=== PATIENT | female | born 1930 | race African-American/Black ===

== ENCOUNTER 2018-07-01 09:37 | Emergency (ER) | payer MEDICARE ==
[~2018-07-01] VITALS: Ht 162.6 cm; Wt 63.5 kg
[2018-07-01 09:51] VITALS: BP 132/66
--- NOTE | 2018-07-01 10:29 | PHYS DOC ---
Past Medical History Past Medical History: High Cholesterol, Hypertension, Stroke, TIA Past Surgical History: Other Additional Past Surgical Histo: ABD SURGERY Alcohol Use: Heavy Drug Use: None Adult General Chief Complaint Chief Complaint: KNEE INJURY HPI HPI Patient is a 88 year old female presented to ER today for evaluation of right knee pain and swelling for the last few today. Patient complaint of pain when she walked. Patient denies any fever, no nausea vomiting. Patient denies any injury. Patient has history of right patella fracture in the past. Patient denies any chest pain, no trouble breathing. Review of Systems Review of Systems Constitutional: Denies fever or chills [] Eyes: Denies change in visual acuity, redness, or eye pain [] HENT: Denies nasal congestion or sore throat [] Respiratory: Denies cough or shortness of breath [] Cardiovascular: No additional information not addressed in HPI [] GI: Denies abdominal pain, nausea, vomiting, bloody stools or diarrhea [] : Denies dysuria or hematuria [] Musculoskeletal: Positive for her right knee pain Integument: Denies rash or skin lesions [] Neurologic: Denies headache, focal weakness or sensory changes [] Endocrine: Denies polyuria or polydipsia [] All other systems were reviewed and found to be within normal limits, except as documented in this note. Current Medications Current Medications Current Medications Medications (Trade) Dose Ordered Sig/Mariano Start Time Stop Time Status Last Admin Dose Admin Acetaminophen/ Hydrocodone Bitart (Lortab 5/325) 1 tab 1X ONCE 07/01/18 10:30 07/01/18 10:39 DC 07/01/18 10:39 1 TAB Allergies Allergies Allergies Coded Allergies Type Severity Reaction Last Updated Verified No Known Drug Allergies 07/01/18 No Physical Exam Physical Exam Constitutional: Well developed, well nourished, no acute distress, non-toxic appearance. [] HENT: Normocephalic, atraumatic, Eyes: PERRLA, EOMI, conjunctiva normal, no discharge. [] Neck: Normal range of motion, no tenderness, supple, no stridor. [] Cardiovascular:Heart rate regular rhythm, no murmur [] Lungs & Thorax: Bilateral breath sounds clear to auscultation [] Abdomen: Bowel sounds normal, soft, no tenderness, no masses, no pulsatile masses. [] Skin: Warm, dry, no erythema, no rash. [] Back: No tenderness, no CVA tenderness. [] Extremities: right knee is tender at the bursa area above the patella, there is no rash or the skin is hot to touch. RIGHT KNEE JOINT WITH FULL RANGE OF MOTION. GOOD DISTAL PULSE. Neurologic: Alert and oriented X 3, normal motor function, normal sensory function, no focal deficits noted. [] Psychologic: Affect normal, judgement normal, mood normal. [] Current Patient Data Vital Signs Vital Signs Date Time Temp Pulse Resp B/P (MAP) Pulse Ox O2 Delivery O2 Flow Rate FiO2 07/01/18 09:51 98.2 102 17 132/66 (88) 96 Room Air 98.2 EKG EKG [] Radiology/Procedures Radiology/Procedures [][facility] [address] [place] [address] IMAGING REPORT Signed PATIENT: MARI ROWLAND ACCOUNT: [id number] : 1930 LOCATION: ER AGE: 88 SEX: F EXAM STATUS: DEP ER ORD. PHYSICIAN: MARLYS ANTON DO REASON: right knee swelling PROCEDURE: KNEE RIGHT 3V EXAM: Right knee, 3 views. HISTORY: Pain and swelling. COMPARISON: None. FINDINGS: 3 views of the right knee are obtained. There is lateral compartment predominant joint space narrowing with subchondral sclerosis. There is severe tricompartmental spurring. There is chondrocalcinosis. There is a large joint effusion. There are vascular calcifications. There are small joint loose bodies. There is suspected mild genu valgus. IMPRESSION: 1. Severe lateral compartment predominant osteoarthritis of the right knee. 2. Large joint effusion and suspected joint loose bodies. 3. Suspected mild genu valgus. Electronically signed by: Eloisa Waters MD (07/01/2018 10:30 AM) [facility] DICTATED and SIGNED BY: ELOISA WATERS MD DATE: 07/01/18 1029 Impressions: OSTEOARTHRITIS OF RIGHT KNEE WITH JOINT EFFUSION Course & Med Decision Making Course & Med Decision Making Pertinent Labs and Imaging studies reviewed. (See chart for details) Discussed with Dr. Mcmanus, ORTHOPEDIC SENIOR TECHNICAL WRITER, RECOMMENDED MEDROL DOPAK, PAIN MEDICATION, WILL FOLLOW UP WITH HER IN HIS CLINIC ON 07/05/18 Sussy Disclaimer Sussy Disclaimer This electronic medical record was generated, in whole or in part, using a voice recognition dictation system. Departure Departure Impression: Primary Impression: Osteoarthritis of right knee Disposition: HOME, SELF-CARE Condition: STABLE Referrals: KIKA MCMANUS MD PLEASE CALL THIS ORTHOPEDIC SURGEON TODAY TO BE SEEN ON THURSDAY Patient Instructions: Knee Pain, Osteoarthritis Scripts Hydrocodone/Apap 5-325 (NORCO 5-325 TABLET) 1 Each Tablet 1 TAB PO PRN Q6HRS PRN for PAIN for 5 Days, #20 TAB 0 Refills Prov: MARLYS ANTON DO 07/01/18 Methylprednisolone (MEDROL) 4 Mg Tab.ds.pk 1 PKG PO UD, #1 PKG Prov: MARLYS ANTON DO 07/01/18 MARLYS ANTON DO Jul 01, 2018 10:29
[2018-07-01] MEDS ORDERED: HYDROcodone/APAP 5/325MG 1 TAB TABLET PO ONE (10:30)
--- NOTE | 2018-07-01 10:34 | RAD ---
EXAM: Right knee, 3 views. HISTORY: Pain and swelling. COMPARISON: None. FINDINGS: 3 views of the right knee are obtained. There is lateral compartment predominant joint space narrowing with subchondral sclerosis. There is severe tricompartmental spurring. There is chondrocalcinosis. There is a large joint effusion. There are vascular calcifications. There are small joint loose bodies. There is suspected mild genu valgus. IMPRESSION: 1. Severe lateral compartment predominant osteoarthritis of the right knee. 2. Large joint effusion and suspected joint loose bodies. 3. Suspected mild genu valgus. Electronically signed by: Eloisa Conde MD (07/01/2018 10:30 AM) [facility]
[2018-07-01] MEDS ORDERED: HYDR-971 PO (11:10)
[2018-07-01] MEDS ORDERED: METH4TAB2 PO (11:10)
[2018-07-02] MEDS ORDERED: AMLO10TA6 PO (20:08)
[2018-07-02] MEDS ORDERED: METF500T16 PO (20:09)
[2018-07-02] MEDS ORDERED: OMEP20CA9 PO (20:09)
[2018-07-02] MEDS ORDERED: LOSA50TA7 PO (20:10)
[2018-07-02] MEDS ORDERED: CLOP75TA PO (20:10)
[2018-07-02] MEDS ORDERED: PRAV20TA2 PO (20:11)
[2018-07-02] MEDS ORDERED: METO25TA4 PO (20:11)
[2018-07-02] MEDS ORDERED: excedrin pm (20:16)
== END 2018-07-01 11:26 | disposition home or self-care (01) ==
LOC: ER 09:37
DX: M17.11 Unilateral primary osteoarthritis, right knee (principal); E78.00 Pure hypercholesterolemia, unspecified; I10 Essential (primary) hypertension; F10.20 Alcohol dependence, uncomplicated; Y90.9 Presence of alcohol in blood, level not specified; Z86.73 Personal history of transient ischemic attack (TIA), and cerebral infarction without residual deficits
CPT/HCPCS: 73562; 99284

== ENCOUNTER 2018-07-02 17:56 | Inpatient (IN) | payer MEDICARE ==
[~2018-07-02] VITALS: Ht 162.6 cm; Wt 68.2 kg
[~2018-07-02 17:56] MED LIST: HYDR-971 PO; METH4TAB2 PO
[2018-07-02 19:00] VITALS: BP 124/70
[2018-07-02] MEDS ORDERED: TEMAZEPAM 15 MG CAPSULE PO PRN (19:45)
[2018-07-02] MEDS ORDERED: HYDROcodone/APAP 5/325MG 1 TAB TABLET PO PRN (19:45)
[2018-07-02] MEDS ORDERED: IBUPROFEN 200 MG TABLET. PO PRN (19:45)
[2018-07-02] MEDS: HYDROcodone/APAP 7.5/325MG 1 TAB TABLET PO PRN (19:53)
[2018-07-02] MEDS ORDERED: AMLO10TA6 PO (20:08)
[2018-07-02] MEDS ORDERED: OMEP20CA9 PO (20:09)
[2018-07-02] MEDS ORDERED: METF500T16 PO (20:09)
[2018-07-02] MEDS ORDERED: LOSA50TA7 PO (20:10)
[2018-07-02] MEDS ORDERED: CLOP75TA PO (20:10)
[2018-07-02] MEDS ORDERED: PRAV20TA2 PO (20:11)
[2018-07-02] MEDS ORDERED: METO25TA4 PO (20:11)
[2018-07-02] MEDS ORDERED: excedrin pm (20:16)
[2018-07-02] MEDS ORDERED: VANCOMYCIN 1.5 GM in IV NORMAL SALINE 500ML BAG 500 ML IV ONE (20:30)
[2018-07-02] MEDS: cefTRIAXone IV Push 1 GM VIAL. IVP SCH (20:58)
[2018-07-02] MEDS ORDERED: VANCOMYCIN 1GM IVPB FOR OMNI 250 ML IV SCH (21:00)
[2018-07-02 21:41] LABS: BF SOURCE SYNOVIAL
[2018-07-02 21:42] LABS: BF CLARITY TURBID; BF COLOR YELLOW; BF MON % 30 %; BF PMN % 70 %; BF RBC COUNT 12000 /cmm; BF WBC COUNT 129500 /cmm
[2018-07-02 23:00] VITALS: BP 106/60
[2018-07-03 01:03] LABS: BASO % 0 % (0-3); EOS % 0 % (0-3); HEMATOCRIT 29.9 % (36.0-47.0); HEMOGLOBIN 10.1 g/dL (12.0-15.5); LYMPH # 1.1 x10^3/uL (1.0-4.8); LYMPH % 8 % (24-48); MEAN CORPUSCULAR HEMOGLOBIN 30 pg (25-35); MEAN CORPUSCULAR HGB CONC 34 g/dL (31-37); MEAN CORPUSCULAR VOLUME 90 fL (79-100); MONO # 1.4 x10^3/uL (0.0-1.1); MONO % 11 % (0-9); NEUT # 10.7 x10^3uL (1.8-7.7); NEUT % 81 % (31-73); PLATELET COUNT 258 x10^3/uL (140-400); RED BLOOD COUNT 3.34 x10^6/uL (3.50-5.40); RED CELL DISTRIBUTION WIDTH 14.2 % (11.5-14.5); WHITE BLOOD COUNT 13.2 x10^3/uL (4.0-11.0)
[2018-07-03 01:21] LABS: ALBUMIN 2.9 g/dL (3.4-5.0); ALBUMIN/GLOBULIN RATIO 0.9 (1.0-1.7); CALCIUM 8.8 mg/dL (8.5-10.1); CREATININE 1.6 mg/dL (0.6-1.0); POTASSIUM 4.1 mmol/L (3.5-5.1); TOTAL BILIRUBIN 0.6 mg/dL (0.2-1.0); TOTAL PROTEIN 6.2 g/dL (6.4-8.2); URIC ACID 5.9 mg/dL (2.6-6.0)
[2018-07-03 03:00] VITALS: BP 111/68
[2018-07-03] MEDS ORDERED: HYDROcodone/APAP 5/325MG 1 TAB TABLET PO PRN (03:45)
[2018-07-03] MEDS: VANCOMYCIN PER PHARMACY MC PRN ×2 (03:55→12:45)
[2018-07-03 07:00] VITALS: BP 116/64
[2018-07-03] MEDS ORDERED: NON FORMULARY ITEM (Metformin Hcl 500 MG) PO SCH (09:00)
[2018-07-03] MEDS: METOPROLOL TART IMMED RELEASE 25 MG TABLET. PO SCH (09:00)
[2018-07-03] MEDS: LOSARTAN POTASSIUM 50 MG TABLET. PO SCH (09:00)
[2018-07-03] MEDS: PANTOPRAZOLE 40 MG TABLET.DR. PO SCH (10:31)
[2018-07-03] MEDS: HYDROcodone/APAP 7.5/325MG 1 TAB TABLET PO PRN ×2 (10:34→23:56)
[2018-07-03] MEDS: amLODIPine BESYLATE 10 MG TABLET PO SCH (10:36)
[2018-07-03] MEDS: CLOPIDOGREL BISULFATE 75 MG TABLET PO SCH (10:38)
[2018-07-03 11:00] VITALS: BP 118/53
[2018-07-03] MEDS: ALPRAZolam 0.25 MG TABLET PO PRN ×2 (11:31→20:28)
--- NOTE | 2018-07-03 11:41 | PDOC ---
GENERAL General: see dictated H&P. VITAL SIGNS Vital Signs: Vital Signs Date Time Temp Pulse Resp B/P (MAP) Pulse Ox O2 Delivery O2 Flow Rate FiO2 07/03/18 10:36 54 118/53 07/03/18 10:34 Room Air 07/03/18 07:00 97.9 16 95 97.9 I & O I & O Intake and Output 07/03/18 07:00 Intake Total 700 ml Balance 700 ml Intake Oral 200 ml IV Total 500 ml # Voids 1 ALLERGIES Allergies: Allergies Coded Allergies Type Severity Reaction Last Updated Verified No Known Drug Allergies 07/01/18 No MEDS Medications: Current Medications Medications (Trade) Dose Ordered Sig/Mariano Start Time Stop Time Status Last Admin Dose Admin Acetaminophen/ Hydrocodone Bitart (Lortab 5/325) 1 tab PRN Q6HRS PRN 07/03/18 03:45 Cancel Acetaminophen/ Hydrocodone Bitart (Lortab 7.5/325) 1 tab PRN Q4HRS PRN 07/02/18 19:45 07/03/18 10:34 1 TAB Alprazolam (Xanax) 0.25 mg PRN TID PRN 07/03/18 11:15 07/03/18 11:31 0.25 MG Amlodipine Besylate (Norvasc) 10 mg DAILY 07/03/18 09:00 07/03/18 10:36 10 MG Atorvastatin Calcium (Lipitor) 5 mg QHS 07/03/18 21:00 Ceftriaxone Sodium (Rocephin) 1 gm Q24H 07/02/18 20:15 07/02/18 20:58 1 GM Clopidogrel Bisulfate (Plavix) 75 mg DAILY 07/03/18 09:00 07/03/18 10:38 75 MG Ibuprofen (Motrin) 600 mg PRN Q8HRS PRN 07/02/18 19:45 07/02/18 19:54 600 MG Losartan Potassium (Cozaar) 50 mg DAILY 07/03/18 09:00 Metoprolol Tartrate (Lopressor) 25 mg DAILY 07/03/18 09:00 Non-Formulary Medication (Metformin Hcl ) 500 mg DAILY 07/03/18 09:00 UNV Pantoprazole Sodium (Protonix) 40 mg DAILYAC 07/03/18 07:30 07/03/18 10:31 40 MG Temazepam (Restoril) 15 mg PRN QHS PRN 07/02/18 19:45 Vancomycin HCl (Vanco Per Pharmacy) 1 each PRN DAILY PRN 07/02/18 20:15 07/03/18 03:55 1 EACH Vancomycin HCl (Vancomycin Trough Level) 1 each 1X ONCE 07/04/18 20:30 07/04/18 20:31 Vancomycin HCl 1.5 gm/Sodium Chloride 500 ml @ 250 mls/hr ONCE ONCE 07/02/18 20:30 07/02/18 22:29 DC 07/02/18 21:08 250 MLS/HR Vancomycin HCl 1 gm/Sodium Chloride 250 ml @ 250 mls/hr Q24H 07/03/18 21:00 LAB Lab: Laboratory Tests Test 07/02/18 20:00 07/03/18 00:30 Body Fluid Source Synovial Body Fluid Color Yellow Body Fluid Clarity Turbid Body Fluid Nucleated Cells 265158 /cmm Body Fluid Mononuclear WBCs (%) 30 % Body Fluid Polymorphonuclear Cells 70 % Body Fluid Total RBCs Counted 08513 /cmm White Blood Count 13.2 x10^3/uL (4.0-11.0) Red Blood Count 3.34 x10^6/uL (3.50-5.40) Hemoglobin 10.1 g/dL (12.0-15.5) Hematocrit 29.9 % (36.0-47.0) Mean Corpuscular Volume 90 fL (79-100) Mean Corpuscular Hemoglobin 30 pg (25-35) Mean Corpuscular Hemoglobin Concent 34 g/dL (31-37) Red Cell Distribution Width 14.2 % (11.5-14.5) Platelet Count 258 x10^3/uL (140-400) Neutrophils (%) (Auto) 81 % (31-73) Lymphocytes (%) (Auto) 8 % (24-48) Monocytes (%) (Auto) 11 % (0-9) Eosinophils (%) (Auto) 0 % (0-3) Basophils (%) (Auto) 0 % (0-3) Neutrophils # (Auto) 10.7 x10^3uL (1.8-7.7) Lymphocytes # (Auto) 1.1 x10^3/uL (1.0-4.8) Monocytes # (Auto) 1.4 x10^3/uL (0.0-1.1) Eosinophils # (Auto) 0.0 x10^3/uL (0.0-0.7) Basophils # (Auto) 0.0 x10^3/uL (0.0-0.2) Erythrocyte Sedimentation Rate 50 (0-25) Sodium Level 138 mmol/L (136-145) Potassium Level 4.1 mmol/L (3.5-5.1) Chloride Level 103 mmol/L (98-107) Carbon Dioxide Level 25 mmol/L (21-32) Anion Gap 10 (6-14) Blood Urea Nitrogen 24 mg/dL (7-20) Creatinine 1.6 mg/dL (0.6-1.0) Estimated GFR (Cockcroft-Gault) 37.0 BUN/Creatinine Ratio 15 (6-20) Glucose Level 156 mg/dL (70-99) Uric Acid 5.9 mg/dL (2.6-6.0) Calcium Level 8.8 mg/dL (8.5-10.1) Total Bilirubin 0.6 mg/dL (0.2-1.0) Aspartate Amino Transf (AST/SGOT) 18 U/L (15-37) Alanine Aminotransferase (ALT/SGPT) 15 U/L (14-59) Alkaline Phosphatase 78 U/L (46-116) Total Protein 6.2 g/dL (6.4-8.2) Albumin 2.9 g/dL (3.4-5.0) Albumin/Globulin Ratio 0.9 (1.0-1.7) NELSON SHARMA MD Jul 03, 2018 11:41
--- NOTE | 2018-07-03 12:23 | HP ---
ADMIT DATE: 07/02/2018 CHIEF COMPLAINT AND HISTORY OF PRESENT ILLNESS: This is an 88-year-old black female patient of Dr. Mook Bain who was admitted from his office on the late afternoon. She got up morning, inability to walk due to right knee pain and swelling. She was seen in the Emergency Room where she had an x-ray showing a joint effusion and marked lateral osteoarthritic changes on plain films of the knee, was given a Medrol Dosepak for presumed inflammation in the knee, was not improved by Thursday, saw Dr. Bain later in the afternoon where he did aspiration of fluid, which was cloudy and turbid and since she has been admitted those studies show a large amount of white blood cells compared to red blood cells suggesting a possible septic knee. She did admit to some chills one night during all this per her daughter, but as far as I know not running any fevers at home. Still is unable to use the knee or able to walk. There is no obvious source for ____ of a right knee replacement. There has been no surgery on it. PAST MEDICAL HISTORY: The patient's past medical history is remarkable for prior TIA, CVA, hypertension, diabetes and anxiety. MEDICATIONS: Brought with the patient, listed on the computer and have been addressed. ALLERGIES: She has no known drug allergies. SOCIAL HISTORY: She does have a tobacco history, is not a drinker or use drugs. Lives at home with her daughter. FAMILY HISTORY: Noncontributory. REVIEW OF SYSTEMS: Remarkable predominately for the knee pain. She denies specifically any cardiac, pulmonary, GI, , skin symptoms on questioning. PHYSICAL EXAMINATION: GENERAL: She is a well-developed, well-nourished black female in no acute distress, lying in bed. Daughter is at bedside. VITAL SIGNS: Stable. She is afebrile. HEAD, EYES, EARS, NOSE AND THROAT: Unremarkable. NECK: Supple without bruit or thyromegaly. CHEST: Clear to auscultation and percussion. HEART: Regular rate and rhythm without S3, S4 or murmur. ABDOMEN: Soft, nontender, without hepatosplenomegaly or mass. EXTREMITIES: Reveal right knee effusion, which is warm and tender to move the knee. Otherwise, there is no significant cyanosis or clubbing. There is a little bit edema distally on the right leg due to the knee problems. NEUROLOGIC: She is intact. LABORATORY DATA: Initial laboratory is remarkable for leukocytosis of 13,200 with a left shift. Sedimentation rate is 80. Chemistry panel shows a creatinine of 1.6, which may be chronic, I am not sure and an albumin of 2.9 suggesting a degree of malnutrition. Gram stain of the fluid shows it to be yellow, turbid with 129,500 nucleated cells, 30% of which are mononuclear and 70% polys. Red blood cell count of 12,000 out of that. Again the imaging of the knee, which was done in the Emergency Room the day prior is described. IMPRESSION: 1. Right knee effusion with inability to walk with certainly a possibility of a septic knee. 2. Diabetes. 3. History of cerebrovascular accident and transient ischemic attack. 4. Hypertension. 5. Renal insufficiency, likely chronic, although at this point I am not sure. PLAN: Home medicines have been continued. She is on vancomycin and ceftriaxone. Orthopedic consultation has been requested and the patient will be monitored, managed and treated appropriately. NELSON SHARMA MD DR: BRANDY/ronald JOB#: [id number] / [id number] Mook Hanna
--- NOTE | 2018-07-03 13:23 | PDOC2 ---
CONSULT Date of Consult Date of Consult DATE: 07/03/18 TIME: 13:13 Reason for Consult Reason for Consult: septic right knee Referring Physician Referring Physician: Dr. Bain Identification/Chief Complaint Chief Complaint right knee pain and swelling Source Source: Chart review, Patient History of Present Illness Reason for Visit: The patient is an 88 year old female admitted with septic right knee. She states she began having pain and swelling in the knee morning and presented to the ER. She was given Medrol Dosepak and pain medication and instructed to followup with our office on Thursday. She says the pain and swelling worsened so she saw Dr. Bain in the office yesterday. The daughter states he aspirated her knee and it looked like "gravy" and was then directly admitted for IV antibiotics. Synovial fluid shows 129,500 wbcs with 70% polys, indicative of infection. Currently, the patient appears comfortable but states she has pain when moving her knee. Afebrile since she has been admitted. Past Medical History Cardiovascular: HTN, Hyperlipidemia CENTRAL NERVOUS SYSTEM: CVA, TIA Psych: Anxiety Endocrine: Diabetes Past Surgical History Past Surgical History: No pertinent history Family History Family History: Hypertension Social History Quit ALCOHOL: none Drugs: None Lives: with Family (with daughter) Current Medications Current Medications Current Medications Ibuprofen (Motrin) 600 mg PRN Q8HRS PRN PO INFLAMMATION Last administered on at 19:54; Start 07/02/18 at 19:45 Acetaminophen/ Hydrocodone Bitart (Lortab 7.5/325) 1 tab PRN Q4HRS PRN PO PAIN MODERATE TO SEVERE Last administered on 07/03/18at 10:34; Start 07/02/18 at 19:45 Temazepam (Restoril) 15 mg PRN QHS PRN PO INSOMNIA; Start 07/02/18 at 19:45 Acetaminophen/ Hydrocodone Bitart (Lortab 5/325) 1 tab PRN Q4HRS PRN PO PAIN MILD; Start 07/02/18 at 19:45 Vancomycin HCl 250 ml @ 250 mls/hr Q12HR IV ; Start 07/02/18 at 21:00; Status UNV Ceftriaxone Sodium 50 ml @ 100 mls/hr DAILY IV ; Start 07/03/18 at 09:00; Status UNV Ceftriaxone Sodium (Rocephin) 1 gm Q24H IVP Last administered on 07/02/18at 20: 58; Start 07/02/18 at 20:15 Vancomycin HCl (Vanco Per Pharmacy) 1 each PRN DAILY PRN MC SEE COMMENTS Last administered on 07/03/18at 12:45; Start 07/02/18 at 20:15 Vancomycin HCl 1.5 gm/Sodium Chloride 500 ml @ 250 mls/hr ONCE ONCE IV Last administered on 07/02/18at 21:08; Start 07/02/18 at 20:30; Stop 07/02/18 at 22:29 ; Status DC Vancomycin HCl 1 gm/Sodium Chloride 250 ml @ 250 mls/hr Q24H IV ; Start at 21:00 Vancomycin HCl (Vancomycin Trough Level) 1 each 1X ONCE MC ; Start 07/04/18 at 20:30; Stop 07/04/18 at 20:31 Amlodipine Besylate (Norvasc) 10 mg DAILY PO Last administered on 07/03/18at 10: 36; Start 07/03/18 at 09:00 Clopidogrel Bisulfate (Plavix) 75 mg DAILY PO Last administered on 07/03/18at 10 :38; Start 07/03/18 at 09:00 Acetaminophen/ Hydrocodone Bitart (Lortab 5/325) 1 tab PRN Q6HRS PRN PO MODERATE PAIN; Start 07/03/18 at 03:45; Status Cancel Losartan Potassium (Cozaar) 50 mg DAILY PO ; Start 07/03/18 at 09:00 Metoprolol Tartrate (Lopressor) 25 mg DAILY PO ; Start 07/03/18 at 09:00 Non-Formulary Medication (Metformin Hcl ) 500 mg DAILY PO ; Start 07/03/18 at 09 :00; Status UNV Pantoprazole Sodium (Protonix) 40 mg DAILYAC PO Last administered on 07/03/18at 10:31; Start 07/03/18 at 07:30 Atorvastatin Calcium (Lipitor) 5 mg QHS PO ; Start 07/03/18 at 21:00 Alprazolam (Xanax) 0.25 mg PRN TID PRN PO ANXIETY / AGITATION Last administered on 07/03/18at 11:31; Start 07/03/18 at 11:15 Active Scripts Active [place] 5-325 Tablet (Acetaminophen/Hydrocodone Bitart) 1 Each Tablet 1 Tab PO PRN Q6HRS PRN 5 Days Medrol (Methylprednisolone) 4 Mg Tab.ds.pk 1 Pkg PO UD Reported [excedrin pm] Metoprolol Tartrate 25 Mg Tablet 1 Tab PO DAILY Pravastatin Sodium 20 Mg Tablet 1 Tab PO DAILY Clopidogrel (Clopidogrel Bisulfate) 75 Mg Tablet 1 Tab PO DAILY Losartan Potassium 50 Mg Tablet 50 Mg PO DAILY Metformin Hcl 500 Mg Tablet 500 Mg PO DAILY Omeprazole 20 Mg Capsule.dr 1 Cap PO DAILY Amlodipine Besylate 10 Mg Tablet 10 Mg PO DAILY Allergies Allergies: Coded Allergies: No Known Drug Allergies (Unverified , 07/01/18) Physical Exam General: Alert, Oriented X3, Cooperative, No acute distress HEENT: Atraumatic, EOMI Lungs: Normal air movement Heart: Regular rate Abdomen: Soft Extremities: No clubbing, No cyanosis, No edema, Normal pulses Skin: No rashes, No breakdown, No significant lesion Neuro: Normal speech, Sensation intact Psych/Mental Status: Mental status NL, Mood NL MUSCULOSKELETAL: Other (The right knee shows a moderate effusion with band-aid in place from previous aspiration. Moderate warmth, no erythema. General tenderness to palpation about the knee. Pain with attempted range of motion of knee. Calf soft and nontender with negative Last's sign. Good df/pf at foot. Peripheral pulses and light touch sensation intact. ) Vitals VITALS Vital Signs Date Time Temp Pulse Resp B/P (MAP) Pulse Ox O2 Delivery O2 Flow Rate FiO2 07/03/18 11:34 Room Air 07/03/18 11:00 98.2 54 18 118/53 (74) 97 98.2 Labs Labs Laboratory Tests Test 07/02/18 20:00 07/03/18 00:30 Body Fluid Source Synovial Body Fluid Color Yellow Body Fluid Clarity Turbid Body Fluid Nucleated Cells 490052 /cmm Body Fluid Mononuclear WBCs (%) 30 % Body Fluid Polymorphonuclear Cells 70 % Body Fluid Total RBCs Counted 06823 /cmm White Blood Count 13.2 x10^3/uL (4.0-11.0) Red Blood Count 3.34 x10^6/uL (3.50-5.40) Hemoglobin 10.1 g/dL (12.0-15.5) Hematocrit 29.9 % (36.0-47.0) Mean Corpuscular Volume 90 fL (79-100) Mean Corpuscular Hemoglobin 30 pg (25-35) Mean Corpuscular Hemoglobin Concent 34 g/dL (31-37) Red Cell Distribution Width 14.2 % (11.5-14.5) Platelet Count 258 x10^3/uL (140-400) Neutrophils (%) (Auto) 81 % (31-73) Lymphocytes (%) (Auto) 8 % (24-48) Monocytes (%) (Auto) 11 % (0-9) Eosinophils (%) (Auto) 0 % (0-3) Basophils (%) (Auto) 0 % (0-3) Neutrophils # (Auto) 10.7 x10^3uL (1.8-7.7) Lymphocytes # (Auto) 1.1 x10^3/uL (1.0-4.8) Monocytes # (Auto) 1.4 x10^3/uL (0.0-1.1) Eosinophils # (Auto) 0.0 x10^3/uL (0.0-0.7) Basophils # (Auto) 0.0 x10^3/uL (0.0-0.2) Erythrocyte Sedimentation Rate 50 (0-25) Sodium Level 138 mmol/L (136-145) Potassium Level 4.1 mmol/L (3.5-5.1) Chloride Level 103 mmol/L (98-107) Carbon Dioxide Level 25 mmol/L (21-32) Anion Gap 10 (6-14) Blood Urea Nitrogen 24 mg/dL (7-20) Creatinine 1.6 mg/dL (0.6-1.0) Estimated GFR (Cockcroft-Gault) 37.0 BUN/Creatinine Ratio 15 (6-20) Glucose Level 156 mg/dL (70-99) Uric Acid 5.9 mg/dL (2.6-6.0) Calcium Level 8.8 mg/dL (8.5-10.1) Total Bilirubin 0.6 mg/dL (0.2-1.0) Aspartate Amino Transf (AST/SGOT) 18 U/L (15-37) Alanine Aminotransferase (ALT/SGPT) 15 U/L (14-59) Alkaline Phosphatase 78 U/L (46-116) Total Protein 6.2 g/dL (6.4-8.2) Albumin 2.9 g/dL (3.4-5.0) Albumin/Globulin Ratio 0.9 (1.0-1.7) Laboratory Tests Test 07/02/18 20:00 07/03/18 00:30 Body Fluid Source Synovial Body Fluid Color Yellow Body Fluid Clarity Turbid Body Fluid Nucleated Cells 863058 /cmm Body Fluid Mononuclear WBCs (%) 30 % Body Fluid Polymorphonuclear Cells 70 % Body Fluid Total RBCs Counted 39055 /cmm White Blood Count 13.2 x10^3/uL (4.0-11.0) Red Blood Count 3.34 x10^6/uL (3.50-5.40) Hemoglobin 10.1 g/dL (12.0-15.5) Hematocrit 29.9 % (36.0-47.0) Mean Corpuscular Volume 90 fL (79-100) Mean Corpuscular Hemoglobin 30 pg (25-35) Mean Corpuscular Hemoglobin Concent 34 g/dL (31-37) Red Cell Distribution Width 14.2 % (11.5-14.5) Platelet Count 258 x10^3/uL (140-400) Neutrophils (%) (Auto) 81 % (31-73) Lymphocytes (%) (Auto) 8 % (24-48) Monocytes (%) (Auto) 11 % (0-9) Eosinophils (%) (Auto) 0 % (0-3) Basophils (%) (Auto) 0 % (0-3) Neutrophils # (Auto) 10.7 x10^3uL (1.8-7.7) Lymphocytes # (Auto) 1.1 x10^3/uL (1.0-4.8) Monocytes # (Auto) 1.4 x10^3/uL (0.0-1.1) Eosinophils # (Auto) 0.0 x10^3/uL (0.0-0.7) Basophils # (Auto) 0.0 x10^3/uL (0.0-0.2) Erythrocyte Sedimentation Rate 50 (0-25) Sodium Level 138 mmol/L (136-145) Potassium Level 4.1 mmol/L (3.5-5.1) Chloride Level 103 mmol/L (98-107) Carbon Dioxide Level 25 mmol/L (21-32) Anion Gap 10 (6-14) Blood Urea Nitrogen 24 mg/dL (7-20) Creatinine 1.6 mg/dL (0.6-1.0) Estimated GFR (Cockcroft-Gault) 37.0 BUN/Creatinine Ratio 15 (6-20) Glucose Level 156 mg/dL (70-99) Uric Acid 5.9 mg/dL (2.6-6.0) Calcium Level 8.8 mg/dL (8.5-10.1) Total Bilirubin 0.6 mg/dL (0.2-1.0) Aspartate Amino Transf (AST/SGOT) 18 U/L (15-37) Alanine Aminotransferase (ALT/SGPT) 15 U/L (14-59) Alkaline Phosphatase 78 U/L (46-116) Total Protein 6.2 g/dL (6.4-8.2) Albumin 2.9 g/dL (3.4-5.0) Albumin/Globulin Ratio 0.9 (1.0-1.7) Images Images Right knee x-ray images and report reviewed which reveal degenerative changes with joint space narrowing, osteophytes, and sclerosis consistent with advanced osteoarthritis. Assessment/Plan Assessment/Plan Right septic knee joint. Findings were reviewed with the patient and her daughter. Synovial fluid shows 129,500 WBCs with 70% polys, indicative of a septic joint. Recommended right knee arthroscopy and lavage tomorrow morning. The surgical procedure, as well as risks and benefits, were discussed with the patient and her daughter. All of their questions were answered and they desire to proceed with surgery. Discussed the need for using a walker 7-10 days after surgery. Her daughter states they have a walker at home. Surgery scheduled for tomorrow 07/04/18 at 8am. NPO after midnight. TAWANDA HOBBS Jul 03, 2018 13:23
[2018-07-03 15:00] VITALS: BP 123/64
[2018-07-03] MEDS: oxyCODONE/APAP 5/325 1 TAB TABLET PO PRN ×2 (15:19→20:28)
--- NOTE | 2018-07-03 16:53 | HP ---
ADMIT DATE: 07/02/2018 DATE OF ADMISSION: 07/02/2018 CHIEF COMPLAINT: Painful right knee. HISTORY OF PRESENT ILLNESS: This is an 88-year-old white female, new patient to our practice a month ago, developed painful swelling of the right knee without an injury 2 days prior to admission. She has never had a history of gout or any current acute inflammatory arthritis and could recall no injury. She was seen in the [place] ER one day prior to admission and an x-ray was done, which she was told was unremarkable and was started on Medrol Dosepak. She was seen in our office on the day of admission because of continued swelling and a desire for fluid reduction in her knee. She cannot recall fever, chills or any other specific symptoms. PAST MEDICAL HISTORY: She has a history of a stroke in 2000. MEDICATIONS: She takes citalopram, omeprazole, losartan, pravastatin, amlodipine, and hydrocodone. ALLERGIES: No drug allergies. She is uncertain of last tetanus or any immunizations and does not recall ever having gout or any orthopedic surgery. She does not take aspirin. SOCIAL HISTORY: Lives with her daughter because of some disability. Nondrinker, nonsmoker. FAMILY HISTORY: Unremarkable. REVIEW OF SYSTEMS: No other specific complaints at this time. OBJECTIVE: ENT: Mild pallor, otherwise all within normal limits. Mild proptosis bilaterally. NECK: Revealed no carotid bruits, nodes, thyroid enlargement or masses. LUNGS: Clear with decreased breath sounds. CARDIOVASCULAR: Regular rate, mild tachycardia. No murmur. BREASTS: Not examined. ABDOMEN: Soft, benign and nontender. EXTREMITIES: The right knee has 3+ effusion diffusely, warm and tender with limited range of motion but ligaments feel intact. Sterile arthrocentesis yielded 20 mL of purulent looking fluid from the right lateral knee, which was deposited in a sterile container. Other joints appear to be unremarkable. Distal pulses are normal. NEUROLOGIC: Physiologic and nonfocal. ASSESSMENT: Acute inflammation of the right knee, suspect a septic joint versus acute gouty arthritis, but no history of that. Certainly, the joint fluid is purulent in appearance. PLAN: No steroid was instilled in the fluid that was sent with the patient for culture, Gram stain, crystal analysis and other studies. We will start vancomycin and Rocephin pending results of Gram stain and culture. Orthopedic consultation. Laboratory studies to check for renal function and uric acid, and supportive care. ZOILA NEW MD DR: DRU/ronald JOB#: [id number] / [id number]
[2018-07-03 19:00] VITALS: BP 130/72
[2018-07-03] MEDS: cefTRIAXone IV Push 1 GM VIAL. IVP SCH (20:29)
--- NOTE | 2018-07-03 21:10 | EKG ---
[facility] [address] [place] [address] Test Date: 2018-07-03 Test Time: 20:02:52 Pat Name: MARI ROWLAND Department: Room: 430 Gender: F Change Management Administrator: JOANN : [id number] Requested By: ZOILA BARRIOS Order Number: [id number] Reading MD: Lavelle Pace Measurements Intervals [place] Rate: 87 P: 59 TN: 138 QRS: -55 QRSD: 98 T: 66 QT: 366 QTc: 446 Interpretive Statements SINUS RHYTHM ABNORMAL LEFT AXIS DEVIATION LEFT ANTERIOR FASCICULAR BLOCK QRS(T) CONTOUR ABNORMALITY CONSISTENT WITH SEPTAL INFARCT PROBABLY OLD T ABNORMALITY IN ANTERIOR LEADS HIGH LATERAL LEADS ABNORMAL ECG Electronically Signed On 07-05-2018 11:22:25 CDT by Lavelle Pace
[2018-07-03] MEDS: ATORVASTATIN CALCIUM 10 MG TABLET. PO SCH (21:41)
[2018-07-03] MEDS: VANCOMYCIN 1 GM in IV NORMAL SALINE 250ML 250 ML IV SCH (21:42)
[2018-07-03 23:00] VITALS: BP 147/66
[2018-07-04] VITALS (15 sets, daily range): BP systolic 114–151; BP diastolic 54–83
[2018-07-04] MEDS ORDERED: BUPIVACAINE-EPI 0.5%-1:200000 50 ML VIAL. ONE (06:21)
[2018-07-04] MEDS ORDERED: EPINEPHrine VIAL 30 MG/30 ML VIAL ONE (06:22)
[2018-07-04 06:26] LABS: BASO % 0 % (0-3); EOS % 0 % (0-3); HEMATOCRIT 29.8 % (36.0-47.0); HEMOGLOBIN 9.9 g/dL (12.0-15.5); LYMPH % 8 % (24-48); MEAN CORPUSCULAR HEMOGLOBIN 30 pg (25-35); MEAN CORPUSCULAR HGB CONC 33 g/dL (31-37); MEAN CORPUSCULAR VOLUME 90 fL (79-100); MONO # 1.5 x10^3/uL (0.0-1.1); MONO % 12 % (0-9); NEUT % 80 % (31-73); PLATELET COUNT 311 x10^3/uL (140-400); RED BLOOD COUNT 3.32 x10^6/uL (3.50-5.40); RED CELL DISTRIBUTION WIDTH 14.1 % (11.5-14.5); WHITE BLOOD COUNT 12.5 x10^3/uL (4.0-11.0)
[2018-07-04 06:38] LABS: CREATININE 2.3 mg/dL (0.6-1.0); GFR 24.3; POTASSIUM 3.5 mmol/L (3.5-5.1)
[2018-07-04] MEDS ORDERED: PROCHLORPERAZINE 10 MG/2 ML VIAL. IV PRN (07:00)
[2018-07-04] MEDS ORDERED: fentaNYL PF VIAL 100 MCG/2 ML VIAL IV PRN ×3 (07:00→09:30)
[2018-07-04] MEDS ORDERED: IV RINGERS,LACTATED 1000ML 1,000 ML IV SCH (07:00)
[2018-07-04] MEDS ORDERED: MORPHINE SULFATE 2 MG/ML VIAL. IV PRN ×2 (07:00→09:30)
[2018-07-04] MEDS ORDERED: ONDANSETRON PF 4 MG/2 ML VIAL. IV PRN ×2 (07:00→09:30)
[2018-07-04] MEDS ORDERED: LIDOCAINE 1% PF 2 ML VIAL. ID PRN (07:00)
[2018-07-04] MEDS ORDERED: HYDROmorphone 2 MG/ML VIAL IV PRN (07:00)
[2018-07-04] MEDS ORDERED: PROPOFOL 20 ML IV ONE (07:08)
[2018-07-04] MEDS ORDERED: DEXAMETHASONE SOD PHOS 20 MG/5 ML VIAL. ONE (07:08)
[2018-07-04] MEDS ORDERED: fentaNYL PF VIAL 100 MCG/2 ML VIAL ONE (07:09)
[2018-07-04] MEDS ORDERED: ONDANSETRON PF 4 MG/2 ML VIAL. ONE (07:11)
[2018-07-04] MEDS: PANTOPRAZOLE 40 MG TABLET.DR. PO SCH (07:30)
[2018-07-04] MEDS ORDERED: SEVOFLURANE 31 TO 60 MINUTES. IH ONE (08:27)
[2018-07-04] MEDS: LOSARTAN POTASSIUM 50 MG TABLET. PO SCH (09:00)
[2018-07-04] MEDS: amLODIPine BESYLATE 10 MG TABLET PO SCH (09:00)
[2018-07-04] MEDS: METOPROLOL TART IMMED RELEASE 25 MG TABLET. PO SCH (09:00)
--- NOTE | 2018-07-04 09:28 | PDOC4 ---
Operative Note Operative Note Date of Procedure: July 04, 2018 Pre-Op Diagnosis: Septic right knee joint Post-Op Diagnosis: Same Procedure: Arthroscopy, knee, surgical for infection, lavage and drainage CPT 26711 Surgeon: Kika Mcmanus MD Registered Nurse Practitioner: Sandy Burns PA-C Anesthesia: General EBL: 10 mL Specimens Obtained: Synovial fluid for culture aerobic and anaerobic Complications: none Drains: none Findings: purulent fluid consistent with septic knee joint. Underlying severe osteoarthritis. Indications for Procedure: The patient is a 88-year-old woman who presented with pain and swelling at the knee. She was treated 3 days ago for probable osteoarthritis flare and she does have severe underlying osteoarthritis. A synovial aspiration was performed more recently which showed purulent fluid and greater than 100,000 white blood cells, and so she is now being treated for probable septic right knee joint. She has been on IV antibiotics. I recommended urgent arthroscopic lavage and drainage. I spoke to the patient and her daughter and granddaughter about that plan of care which would include the lavage and continued IV antibiotics, and eventually oral antibiotics. Risks include continued pain, recurrent swelling and need for further surgeries, persistent or recurrent infection, blood clots, neurovascular injury, bleeding, or other potential surgical or anesthetic competitions. The patient and I discussed the risks, benefits and alternatives of surgery. All of her questions and her familys questions were answered and they desired to proceed with knee arthroscopy and lavage. Procedure in Detail: The patient was identified in the preoperative holding area. The correct extremity was marked by me. The patient was taken to the operating room where general anesthesia was used. The pateint was positioned supine on the operating table. She remains on scheduled antibiotics so no additional doses were given. A timeout procedure was performed. Mr. Burns applied a tourniquet to the upper right thigh, and placed an arthroscopy thigh deleon on the right thigh, and she placed the left leg in the lithotomy leg deleon. The limb was prepared in sterile fashion with surgical prep solution by the cook supervisor. Sterile drapes were applied. The limb was exsanguinated with an Esmarch bandage and the tourniquet was inflated to 350 mmHg. Lateral and medial arthroscopy portals were established. Purulent knee drainage was noted, and was sent in a specimen cup for cultures including aerobic and anaerobic. Knee arthroscopy was now performed systematically. 6 L of saline were irrigated through the knee during this procedure. I examined the medial joint line which showed degenerative changes, and I did thorough irrigation with the shaver. Debridement was performed with the shaver only as needed, although the meniscus is somewhat degenerative and was friable and was partially removed. The intercondylar notch showed normal degenerative ACL and PCL, and thorough irrigation was performed. The lateral joint line showed eburnated bone, degenerative meniscus tearing, and purulent fluid, and thorough irrigation was performed with the shaver. I also did minor debridement of the synovium and degenerative meniscus using the shaver. The suprapatellar pouch showed inflammation, and further purulent fluid, and thorough irrigation was performed with the shaver and scope. The medial lateral gutters were examined and irrigated. I also placed the shaver into the posterior compartment adjacent to the posterior cruciate ligament, for thorough irrigation and drainage of the posterior compartment. Copious irrigation had been used throughout, and then the skin was rinsed with the final of the 6 L of saline. Ms. Burns manipulated the knee into the various correct positions for arthroscopy, while I ran the arthroscope in my left hand and the shaver in my right hand. The portals were closed with 3-0 Prolene interrupted sutures by my malt specifications control assistant Ms. Burns. I instructed her to inject 30 mLs of 0.5% Marcaine with epinephrine into the knee joint for postoperative hemostasis and pain relief. Xeroform and a bulky sterile dressing was applied by Ms. Burns, and the tourniquet was released. KIKA MCMANUS MD Jul 04, 2018 09:28
[2018-07-04] MEDS ORDERED: MORPHINE SULFATE 4 MG/ML VIAL. IV PRN (09:30)
[2018-07-04] MEDS ORDERED: HYDROcodone/APAP 7.5/325MG 1 TAB TABLET PO PRN (09:30)
[2018-07-04] MEDS ORDERED: DEXTROSE 50% 25 GM / 50ML DISP.SYRIN. IV PRN (09:30)
[2018-07-04] MEDS ORDERED: POLYETHYLENE GLYCOL 3350 17 GM PACKET. PO PRN (09:30)
[2018-07-04] MEDS ORDERED: ACETAMINOPHEN/CODEINE 300/30MG TABLET. PO PRN (09:45)
[2018-07-04] MEDS: CLOPIDOGREL BISULFATE 75 MG TABLET PO SCH (16:46)
[2018-07-04] MEDS: HYDROcodone/APAP 7.5/325MG 1 TAB TABLET PO PRN (17:43)
--- NOTE | 2018-07-04 19:13 | PN ---
DATE: 07/04/2018 LOCATION: She is in room 430. SUBJECTIVE: The patient is awake, alert. Denies any significant pain this morning, her daughter and granddaughter are present and have lots of questions about her knee. OBJECTIVE: VITAL SIGNS: Stable. T-max last in 24 hours 99.6. CHEST: Clear. HEART: Regular. ABDOMEN: Benign. EXTREMITIES: Right knee is wrapped. LABORATORY DATA: White count is decreased 12,500. Sugars are failure. Creatinine has increased from yesterday up to 2.3. Relook at the Gram stain does show crystals in the fluid at this point, which did not show yesterday. She was taken for surgery with irrigation of the knee with cultures pending from there in addition. ASSESSMENT: 1. Right knee arthritis with inability to walk or do self-care, which I felt probably was septic yesterday with low white count present, but today with crystals present, certainly would lean toward something like possibly pseudogout type picture. 2. Increased creatinine and upon review of medicines the only medicine that I can see that normally would contribute is ibuprofen, it will be stopped. 3. Diabetes. 4. Hypertension. 5. History of cerebrovascular accident. PLAN: Ibuprofen, again will be discontinued. Creatinine will be rechecked tomorrow. We will await final results of the fluids obtained from surgery from the knee and continue antibiotics in the interim. NELSON SHARMA MD DR: BRANDY/ronald JOB#: [id number] / [id number]
[2018-07-04 20:42] LABS: VANC TR 17.2 mcg/mL (10.0-20.0)
[2018-07-04] MEDS: VANCOMYCIN PER PHARMACY MC PRN (20:45)
[2018-07-04] MEDS: cefTRIAXone IV Push 1 GM VIAL. IVP SCH (21:19)
[2018-07-04] MEDS: ATORVASTATIN CALCIUM 10 MG TABLET. PO SCH (21:19)
[2018-07-04] MEDS: LACTOBACILLUS RHAMNOSUS GG 1 CAPSULE. PO SCH (21:19)
[2018-07-04] MEDS: VANCOMYCIN 1 GM in IV NORMAL SALINE 250ML 250 ML IV SCH (21:20)
[2018-07-05] MEDS: HYDROcodone/APAP 7.5/325MG 1 TAB TABLET PO PRN ×3 (00:57→18:10)
[2018-07-05 03:07] VITALS: BP 126/70
[2018-07-05 05:40] LABS: BILIRUBIN,URINE NEGATIVE (NEG); CLARITY,URINE CLEAR; COLOR,URINE YELLOW; NITRITE,URINE NEGATIVE (NEG); PH,URINE 5.5; PROTEIN,URINE 30 mg/dL (NEG-TRACE); UROBILINOGEN,URINE 0.2 mg/dL (0.2 mg/dL)
[2018-07-05 05:41] LABS: BACTERIA,URINE 0 /HPF (0-FEW); RBC,URINE 0 /HPF (0-2); SQUAMOUS EPITHELIAL CELL,UR FEW /LPF; WBC,URINE OCC /HPF (0-4)
[2018-07-05] MEDS ORDERED: MAGNESIUM HYDROXIDE 2,400 MG/30 ML ORAL.SUSP. PO PRN (06:00)
[2018-07-05 07:00] VITALS: BP 125/76
[2018-07-05] MEDS ORDERED: ASPIRIN 325 MG TABLET PO SCH (08:00)
--- NOTE | 2018-07-05 08:33 | PDOC ---
Provider Note Provider Note [id number] ZOILA NEW MD Jul 05, 2018 08:33
--- NOTE | 2018-07-05 08:44 | PN ---
DATE: 07/05/2018 SUBJECTIVE: The patient remains in moderate pain with effusion and inflammation of the right knee. This appears to be pseudogout as the Gram stain was negative. Culture is negative. No fever and the predominance of the fluid is She has a degree of acute renal failure with creatinine up to 2.3, so stop vancomycin and Rocephin. Start IV fluids. Reduce blood pressure meds. Follow the renal status daily and then perform arthrocentesis with steroid injection either today or tomorrow when available to get back. We will give her a single dose of Solu-Medrol as well at this point for the knee benefit pending the intra-articular injection. ZOILA NEW MD DR: DRU/nts JOB#: [id number] / [id number]
[2018-07-05 08:49] LABS: CALCIUM 9.1 mg/dL (8.5-10.1); CREATININE 1.9 mg/dL (0.6-1.0); GFR 30.3; POTASSIUM 4.2 mmol/L (3.5-5.1)
[2018-07-05] MEDS ORDERED: BUPIVACAINE MPF 0.5% 30 ML VIAL. IJ ONE (09:00)
[2018-07-05] MEDS ORDERED: methylPREDNISolone SOD SUCC PF 40 MG/ML VIAL. IV ONE (09:00)
[2018-07-05] MEDS ORDERED: methylPREDNISolone ACETATE 40 MG/ML VIAL. IM ONE (09:00)
[2018-07-05] MEDS: METOPROLOL TART IMMED RELEASE 25 MG TABLET. PO SCH (09:00)
[2018-07-05] MEDS ORDERED: LIDOCAINE 1%/EPI 1:100,000 30 ML VIAL. IJ ONE (09:00)
[2018-07-05] MEDS ORDERED: BUPIVACAINE 0.5% 50 ML VIAL. INJ ONE (09:00)
[2018-07-05] MEDS: ASPIRIN ENTERIC COATED 81 MG TABLET.DR. PO SCH ×2 (09:00→10:26)
[2018-07-05] MEDS: PANTOPRAZOLE 40 MG TABLET.DR. PO SCH (10:21)
[2018-07-05] MEDS: amLODIPine BESYLATE 5 MG TABLET PO SCH (10:25)
[2018-07-05] MEDS: CLOPIDOGREL BISULFATE 75 MG TABLET PO SCH (10:26)
[2018-07-05] MEDS: SENNOSIDES/DOCUSATE 8.6/50MG TABLET. PO SCH (10:26)
[2018-07-05] MEDS: LACTOBACILLUS RHAMNOSUS GG 1 CAPSULE. PO SCH ×2 (10:27→21:26)
[2018-07-05] MEDS: POTASSIUM CL 20MEQ D5-0.45NACL 1,000 ML IV SCH (10:31)
[2018-07-05 11:00] VITALS: BP 127/62
--- NOTE | 2018-07-05 12:10 | PDOC ---
PROGRESS NOTES Subjective Subjective Pain better today than before surgery. Objective Vital Signs Vital Signs Date Time Temp Pulse Resp B/P (MAP) Pulse Ox O2 Delivery O2 Flow Rate FiO2 07/05/18 11:54 97 Room Air 07/05/18 11:00 98.8 83 16 127/62 (83) 98.8 07/05/18 07:00 2.0 Physical Exam Sitting in recliner. Right knee dressing c/d/i. Calf soft and nontender with negative Last's sign. Good dorsiflexion and plantarflexion at foot. NVI distally. Labs Laboratory Tests Test 07/04/18 05:35 07/04/18 10:01 07/04/18 20:20 07/05/18 00:55 White Blood Count 12.5 x10^3/uL (4.0-11.0) Red Blood Count 3.32 x10^6/uL (3.50-5.40) Hemoglobin 9.9 g/dL (12.0-15.5) Hematocrit 29.8 % (36.0-47.0) Mean Corpuscular Volume 90 fL (79-100) Mean Corpuscular Hemoglobin 30 pg (25-35) Mean Corpuscular Hemoglobin Concent 33 g/dL (31-37) Red Cell Distribution Width 14.1 % (11.5-14.5) Platelet Count 311 x10^3/uL (140-400) Neutrophils (%) (Auto) 80 % (31-73) Lymphocytes (%) (Auto) 8 % (24-48) Monocytes (%) (Auto) 12 % (0-9) Eosinophils (%) (Auto) 0 % (0-3) Basophils (%) (Auto) 0 % (0-3) Neutrophils # (Auto) 10.0 x10^3uL (1.8-7.7) Lymphocytes # (Auto) 1.0 x10^3/uL (1.0-4.8) Monocytes # (Auto) 1.5 x10^3/uL (0.0-1.1) Eosinophils # (Auto) 0.0 x10^3/uL (0.0-0.7) Basophils # (Auto) 0.0 x10^3/uL (0.0-0.2) Sodium Level 138 mmol/L (136-145) Potassium Level 3.5 mmol/L (3.5-5.1) Chloride Level 104 mmol/L (98-107) Carbon Dioxide Level 22 mmol/L (21-32) Anion Gap 12 (6-14) Blood Urea Nitrogen 28 mg/dL (7-20) Creatinine 2.3 mg/dL (0.6-1.0) Estimated GFR (Cockcroft-Gault) 24.3 Glucose Level 147 mg/dL (70-99) Calcium Level 9.0 mg/dL (8.5-10.1) Glucose (Fingerstick) 157 mg/dL (70-99) Vancomycin Level Trough 17.2 mcg/mL (10.0-20.0) Vancomycin Last Dose Date 07/03/18 Vancomycin Last Dose Time 2100 Urine Collection Type Unknown Urine Color Yellow Urine Clarity Clear Urine pH 5.5 Urine Specific [place] 1.015 Urine Protein 30 mg/dL (NEG-TRACE) Urine Glucose (UA) Negative mg/dL (NEG) Urine Ketones (Stick) Negative mg/dL (NEG) Urine Blood Small (NEG) Urine Nitrite Negative (NEG) Urine Bilirubin Negative (NEG) Urine Urobilinogen Dipstick 0.2 mg/dL (0.2 mg/dL) Urine Leukocyte Esterase Negative (NEG) Urine RBC 0 /HPF (0-2) Urine WBC Occ /HPF (0-4) Urine Squamous Epithelial Cells Few /LPF Urine Bacteria 0 /HPF (0-FEW) Urine Mucus Slight /LPF Test 07/05/18 08:12 Sodium Level 140 mmol/L (136-145) Potassium Level 4.2 mmol/L (3.5-5.1) Chloride Level 107 mmol/L (98-107) Carbon Dioxide Level 23 mmol/L (21-32) Anion Gap 10 (6-14) Blood Urea Nitrogen 31 mg/dL (7-20) Creatinine 1.9 mg/dL (0.6-1.0) Estimated GFR (Cockcroft-Gault) 30.3 Glucose Level 156 mg/dL (70-99) Calcium Level 9.1 mg/dL (8.5-10.1) Laboratory Tests Test 07/04/18 20:20 07/05/18 00:55 07/05/18 08:12 Vancomycin Level Trough 17.2 mcg/mL (10.0-20.0) Vancomycin Last Dose Date 07/03/18 Vancomycin Last Dose Time 2100 Urine Collection Type Unknown Urine Color Yellow Urine Clarity Clear Urine pH 5.5 Urine Specific [place] 1.015 Urine Protein 30 mg/dL (NEG-TRACE) Urine Glucose (UA) Negative mg/dL (NEG) Urine Ketones (Stick) Negative mg/dL (NEG) Urine Blood Small (NEG) Urine Nitrite Negative (NEG) Urine Bilirubin Negative (NEG) Urine Urobilinogen Dipstick 0.2 mg/dL (0.2 mg/dL) Urine Leukocyte Esterase Negative (NEG) Urine RBC 0 /HPF (0-2) Urine WBC Occ /HPF (0-4) Urine Squamous Epithelial Cells Few /LPF Urine Bacteria 0 /HPF (0-FEW) Urine Mucus Slight /LPF Sodium Level 140 mmol/L (136-145) Potassium Level 4.2 mmol/L (3.5-5.1) Chloride Level 107 mmol/L (98-107) Carbon Dioxide Level 23 mmol/L (21-32) Anion Gap 10 (6-14) Blood Urea Nitrogen 31 mg/dL (7-20) Creatinine 1.9 mg/dL (0.6-1.0) Estimated GFR (Cockcroft-Gault) 30.3 Glucose Level 156 mg/dL (70-99) Calcium Level 9.1 mg/dL (8.5-10.1) Assessment Assessment POD #1 right knee arthroscopy with lavage Plan Plan of Care Continue POC including therapy and DVT ppx. She may WBAT on the RLE with walker. Discussed exercises with Mook. Awaiting final culture results. TAWANDA HOBBS Jul 05, 2018 12:10
[2018-07-05 15:00] VITALS: BP 111/60
[2018-07-05] MEDS ORDERED: BISACODYL 10 MG SUPP.RECT. PR PRN (16:00)
[2018-07-05 19:00] VITALS: BP 127/72
[2018-07-05] MEDS: ATORVASTATIN CALCIUM 10 MG TABLET. PO SCH (21:26)
[2018-07-05 23:00] VITALS: BP 137/72
[2018-07-06] MEDS: POTASSIUM CL 20MEQ D5-0.45NACL 1,000 ML IV SCH ×3 (00:11→15:00)
[2018-07-06 03:00] VITALS: BP 119/64
[2018-07-06 07:00] VITALS: BP 136/71
[2018-07-06] MEDS: HYDROcodone/APAP 7.5/325MG 1 TAB TABLET PO PRN ×2 (07:13→11:12)
[2018-07-06] MEDS: ASPIRIN ENTERIC COATED 81 MG TABLET.DR. PO SCH (08:00)
[2018-07-06] MEDS: PANTOPRAZOLE 40 MG TABLET.DR. PO SCH (08:24)
[2018-07-06] MEDS: SENNOSIDES/DOCUSATE 8.6/50MG TABLET. PO SCH (08:26)
[2018-07-06] MEDS: CLOPIDOGREL BISULFATE 75 MG TABLET PO SCH (08:26)
[2018-07-06] MEDS: amLODIPine BESYLATE 5 MG TABLET PO SCH (08:29)
--- NOTE | 2018-07-06 08:30 | PN ---
DATE: 07/06/2018 PHYSICAL EXAMINATION: VITAL SIGNS: No temperature. Blood pressure is not quite as low as it was and her output is better with IV fluids. Creatinine down to 1.9 from the 2.3, so her acute renal failure is improving. I was able to squeeze a moderate amount of bloody liquid effusion out of the right knee from the inferior incision and the effusion is largely diminished now, so sterilely injected Depo-Medrol 40 mg and Marcaine 3 mL into the right knee from an anterolateral approach with sterile technique and a 25-gauge needle, which she tolerated well. We will continue current supportive care and IV fluids to improve renal function while we await the response to the steroids for the pseudogout. Cultures remain negative on the synovial fluid and crystals confirm that at least there is a component of pseudogout present. ZOILA NEW MD DR: DRU/ronald JOB#: [id number] / [id number]
[2018-07-06] MEDS: LACTOBACILLUS RHAMNOSUS GG 1 CAPSULE. PO SCH ×2 (08:38→20:20)
[2018-07-06] MEDS: METOPROLOL TART IMMED RELEASE 25 MG TABLET. PO SCH (09:00)
--- NOTE | 2018-07-06 10:07 | PDOC ---
PROGRESS NOTES Subjective Subjective mild knee pain. making arrangements for SNU. had cortisone injection yesterday. Objective Vital Signs Vital Signs Date Time Temp Pulse Resp B/P (MAP) Pulse Ox O2 Delivery O2 Flow Rate FiO2 07/06/18 08:36 96 Room Air 07/06/18 08:29 89 136/71 07/06/18 07:00 97.6 16 97.6 07/05/18 20:00 2.0 Physical Exam small knee effusion. no erythema, no tenderness, minimal warmth. slight drainage at portals. calf soft and NT. Labs Laboratory Tests Test 07/04/18 20:20 07/05/18 00:55 07/05/18 08:12 Vancomycin Level Trough 17.2 mcg/mL (10.0-20.0) Vancomycin Last Dose Date 07/03/18 Vancomycin Last Dose Time 2100 Urine Collection Type Unknown Urine Color Yellow Urine Clarity Clear Urine pH 5.5 Urine Specific [place] 1.015 Urine Protein 30 mg/dL (NEG-TRACE) Urine Glucose (UA) Negative mg/dL (NEG) Urine Ketones (Stick) Negative mg/dL (NEG) Urine Blood Small (NEG) Urine Nitrite Negative (NEG) Urine Bilirubin Negative (NEG) Urine Urobilinogen Dipstick 0.2 mg/dL (0.2 mg/dL) Urine Leukocyte Esterase Negative (NEG) Urine RBC 0 /HPF (0-2) Urine WBC Occ /HPF (0-4) Urine Squamous Epithelial Cells Few /LPF Urine Bacteria 0 /HPF (0-FEW) Urine Mucus Slight /LPF Sodium Level 140 mmol/L (136-145) Potassium Level 4.2 mmol/L (3.5-5.1) Chloride Level 107 mmol/L (98-107) Carbon Dioxide Level 23 mmol/L (21-32) Anion Gap 10 (6-14) Blood Urea Nitrogen 31 mg/dL (7-20) Creatinine 1.9 mg/dL (0.6-1.0) Estimated GFR (Cockcroft-Gault) 30.3 Glucose Level 156 mg/dL (70-99) Calcium Level 9.1 mg/dL (8.5-10.1) Assessment Assessment s/p arthroscopy for knee effusion and had been suspect for septic joint, but cultures are neg so far, and CPPD crystals found. Off abx now. Plan Plan of Care She may WBAT. Ok for d/c from my standpoint, but need to make sure final cultures remain negative. Office f/u with me in 10-14 days. I discussed her case with Dr. Bain by phone. KIKA RAYA MD Jul 06, 2018 10:07
[2018-07-06 11:00] VITALS: BP 132/71
[2018-07-06 15:00] VITALS: BP 130/70
[2018-07-06 19:00] VITALS: BP 134/71
[2018-07-06] MEDS: ATORVASTATIN CALCIUM 10 MG TABLET. PO SCH (20:20)
[2018-07-06 23:00] VITALS: BP 140/71
[2018-07-07] MEDS: POTASSIUM CL 20MEQ D5-0.45NACL 1,000 ML IV SCH (02:08)
[2018-07-07 03:00] VITALS: BP 141/75
[2018-07-07] MEDS: HYDROcodone/APAP 7.5/325MG 1 TAB TABLET PO PRN (06:29)
[2018-07-07] MEDS: PANTOPRAZOLE 40 MG TABLET.DR. PO SCH (06:29)
[2018-07-07 07:49] VITALS: BP 129/79
[2018-07-07] MEDS: ASPIRIN ENTERIC COATED 81 MG TABLET.DR. PO SCH (08:00)
--- NOTE | 2018-07-07 08:08 | DISCH ---
DISCHARGE DISCHARGE INFORMATION: CONDITION ON DISCHARGE: Stable CODE STATUS: Code Status: Full LONG TERM: SNF STAY <30 DAYS: Yes POST DISCHARGE ORDERS: ACTIVITY ORDERS: No restrictions DIET AFTER DISCHARGE: Regular DISCHARGE MEDICATIONS: Home Meds Active Scripts Hydrocodone/Apap 5-325 (NORCO 5-325 TABLET) 1 Each Tablet, 1 TAB PO PRN Q6HRS PRN for PAIN for 5 Days, #20 TAB 0 Refills Prov:MARLYS ANTON Cristian DO 07/01/18 Methylprednisolone (MEDROL) 4 Mg Tab.ds.pk, 1 PKG PO UD, #1 PKG Prov:ANTONMARLYS Cristian DO 07/01/18 Reported Medications [excedrin pm] No Conflict Check 07/02/18 Metoprolol Tartrate (METOPROLOL TARTRATE) 25 Mg Tablet, 1 TAB PO DAILY, #180 TAB 1 Refill 07/02/18 Pravastatin Sodium (PRAVASTATIN SODIUM) 20 Mg Tablet, 1 TAB PO DAILY, #30 TAB 5 Refills 07/02/18 Clopidogrel Bisulfate (CLOPIDOGREL) 75 Mg Tablet, 1 TAB PO DAILY, #90 TAB 1 Refill 07/02/18 Losartan Potassium (LOSARTAN POTASSIUM) 50 Mg Tablet, 50 MG PO DAILY, TAB 07/02/18 Metformin Hcl (METFORMIN HCL) 500 Mg Tablet, 500 MG PO DAILY for ANTI-DIABETIC, TAB 0 Refills 07/02/18 Omeprazole (OMEPRAZOLE) 20 Mg Capsule.dr, 1 CAP PO DAILY, #30 CAP 5 Refills 07/02/18 Amlodipine Besylate (AMLODIPINE BESYLATE) 10 Mg Tablet, 10 MG PO DAILY, TAB 07/02/18 ZOILA NEW MD Jul 07, 2018 08:08
--- NOTE | 2018-07-07 08:14 | PDOC ---
Provider Note Provider Note [id number] ZOILA NEW MD Jul 07, 2018 08:14
--- NOTE | 2018-07-07 08:40 | DS ---
DATE OF DISCHARGE: 07/06/2018 HOSPITAL SUMMARY: The patient came in with acutely painful right knee that aspiration in the office showed 20 mL of purulent fluid. White cell count on the fluid was 129,000 with 70% polys and calcium pyrophosphate crystals were found. Gram stain showed no organisms and cultures to this current moment are of no growth. Chemistry studies showed a creatinine of 1.6, went up to 2.3 while in the hospital, down to 1.9 two days ago and today's lab is pending. White count was mildly elevated at 13,000, hemoglobin 10, left shift present. ESR elevated at 50. Knee x-ray showed arthritic changes, but no other acute changes. She was initially treated as a septic knee with vancomycin, Rocephin and Dr. Javier took her to the operating room, performed knee lavage. She continued to have pain and was given a dose of Solu-Medrol and then the day before dismissal when cultures continued to be negative, intra-articular injection of 40 mg of Depo-Medrol and her knee is feeling much better at this time. It was felt that this represents acute pseudogout and not septic arthritis as cultures and Gram stain are all negative and she is feeling better, afebrile and transferred to [facility] at this time. Her acute kidney injury is improved with fluids and holding some of the medications. FINAL DIAGNOSES: 1. Acute pseudogout, right knee. 2. Acute renal insufficiency, improving. 3. Chronic kidney disease 3, stable. 4. Type 2 diabetes mellitus, mild. OPERATIONS, PROCEDURES AND COMPLICATIONS: Right knee arthrocentesis, right knee lavage. CONSULTATIONS: Dr. Javier and Dr. Mcmanus. COMPLICATIONS: None. DISPOSITION: She will continue taking only Norvasc 5 mg daily. She is off losartan and diuretics at this time as well as metformin. Tylenol as needed for pain. Good fluid intake encouraged and we will follow up at [facility] with physical therapy. ZOILA NEW MD DR: DRU/ronald JOB#: [id number] / [id number]
[2018-07-07] MEDS: LACTOBACILLUS RHAMNOSUS GG 1 CAPSULE. PO SCH (09:04)
[2018-07-07] MEDS: CLOPIDOGREL BISULFATE 75 MG TABLET PO SCH (09:05)
[2018-07-07] MEDS: amLODIPine BESYLATE 5 MG TABLET PO SCH (09:05)
[2018-07-07] MEDS: SENNOSIDES/DOCUSATE 8.6/50MG TABLET. PO SCH (09:05)
[2018-07-07 11:00] VITALS: BP 138/77
[2018-07-07 11:18] LABS: CREATININE 1.5 mg/dL (0.6-1.0); GFR 39.8; POTASSIUM 4.9 mmol/L (3.5-5.1)
== END 2018-07-07 14:00 | DRG 488 ==
LOC: 4 NORTH 18:25
PROVIDERS: ADMIT Family Medicine; ATTEND Family Medicine
PROC: 0SBC4ZZ Excision of Right Knee Joint, Percutaneous Endoscopic Approach (ICD-10-PCS; 2018-07-04)
PROC: 3E0U3BZ Introduction of Anesthetic Agent into Joints, Percutaneous Approach (ICD-10-PCS; 2018-07-04)
PROC: 3E0U3GC Introduction of Other Therapeutic Substance into Joints, Percutaneous Approach (ICD-10-PCS; 2018-07-04)
PROC: 0S9C4ZZ Drainage of Right Knee Joint, Percutaneous Endoscopic Approach (ICD-10-PCS; principal; 2018-07-04 08:00)
PROC: 3E0U3BZ Introduction of Anesthetic Agent into Joints, Percutaneous Approach (ICD-10-PCS; 2018-07-06)
PROC: 3E0U33Z Introduction of Anti-inflammatory into Joints, Percutaneous Approach (ICD-10-PCS; 2018-07-06)
DX: M11.261 Other chondrocalcinosis, right knee (principal); N17.0 Acute kidney failure with tubular necrosis; E11.22 Type 2 diabetes mellitus with diabetic chronic kidney disease; N18.3 Chronic kidney disease, stage 3 (moderate); E78.5 Hyperlipidemia, unspecified; I12.9 Hypertensive chronic kidney disease with stage 1 through stage 4 chronic kidney disease, or unspecified chronic kidney disease; F41.9 Anxiety disorder, unspecified; M17.11 Unilateral primary osteoarthritis, right knee; Z86.73 Personal history of transient ischemic attack (TIA), and cerebral infarction without residual deficits; Z82.49 Family history of ischemic heart disease and other diseases of the circulatory system
CPT/HCPCS: 36415; 73562; 80048; 80053; 80202; 81001; 82962; 84550; 85025; 85651; 87071; 87075; 89050; 89060; 93005; J0171; J0696; J1030; J1100; J2270; J2405; J2704; J3010; J3370; J3490; J7040; J7050; J7120; 97110; 97116; 97530; J7030